=== PATIENT | female | born 1950 | race Asian ===

== ENCOUNTER 2017-05-26 10:46 | Emergency (ER) | payer OTHER ==
[~2017-05-26] VITALS: Ht 157.5 cm; Wt 49.4 kg
[~2017-05-26 10:46] MED LIST: AMLO-114 PO; ASPCH81X PO; ATOR-24 PO; LORA-741 PO; MELATAB2 PO; METO25TA3 PO; NITR0.4S UT; PANT40TA PO
[2017-05-26 10:50] VITALS: TEMP 36.9; Ht 157.5 cm; Wt 49.4 kg
[2017-05-26 11:18] VITALS: O2SAT 94
[2017-05-26 11:25] LABS: BASO % 0.4 %; BASO ABS # 0.02 K/uL (0-0.2); EOS % 0.8 %; EOS ABS # 0.04 K/uL (0-0.5); HEMATOCRIT 39.3 % (37-47); HEMOGLOBIN 13.6 g/dL (12.0-16.0); IG# 0.01 K/uL (0.00-0.02); LYMPH % 33.1 %; LYMPH ABS # 1.64 K/uL (1.2-3.4); MEAN CELL VOLUME 94.5 fL (80-100); MEAN CORPUSCULAR HEMOGLOBIN 32.7 pg (25-34); MEAN CORPUSCULAR HGB CONC 34.6 g/dl (32-36); MEAN PLATELET VOLUME 9.1 fL (7.4-10.4); MONO % 7.3 %; MONO ABS # 0.36 K/uL (0.11-0.59); NEUT % 58.2 %; NEUT ABS # 2.88 K/uL (1.4-6.5); PLATELET COUNT 260 K/uL (130-400); RED CELL DISTRIBUTION WIDTH CV 12.3 % (11.5-14.5); RED CELL DISTRIBUTION WIDTH SD 41.8 fL (36.4-46.3); WHITE BLOOD COUNT 4.95 K/uL (4.8-10.8)
--- NOTE | 2017-05-26 11:32 | DIAGNOSTIC IMAGING REPORT ---
CHEST ONE VIEW PORTABLE HISTORY: Atypical CHEST PAIN COMPARISON: None. FINDINGS: The heart is normal in size. No pleural effusions. No pneumothorax. The left lung is clear. No focal lung consolidations to suggest pneumonia. No evidence for pulmonary edema. Possible 1.4 cm nodule within the right upper lobe. IMPRESSION: 1. No acute process within the chest. 2. Possible 1.4 cm nodule within the right upper lobe. Follow-up chest CT is recommended for further evaluation. Electronically signed by: Tyree Goode M.D. 05/26/2017 11:30 AM Dictated Date/Time: 05/26/2017 11:29 AM
[2017-05-26 11:40] LABS: ALBUMIN 3.8 gm/dl (3.4-5.0); ALT/SGPT 14 U/L (12-78); BLOOD UREA NITROGEN 11 mg/dl (7-18); CALCIUM 8.7 mg/dl (8.5-10.1); CARBON DIOXIDE 28 mmol/L (21-32); CREATININE 0.67 mg/dl (0.60-1.20); GLUCOSE 92 mg/dl (70-99); LIPASE 135 U/L (73-393); POTASSIUM 3.7 mmol/L (3.5-5.1); SODIUM 139 mmol/L (136-145)
--- NOTE | 2017-05-26 11:40 | EMERGENCY ROOM VISIT NOTE ---
History Report prepared by [place]: Funmilayo Gutierrez Under the Supervision of: Dr. Sahil Knight M.D. First contact with patient: 10:55 Chief Complaint: CHEST PAIN Stated Complaint: CHEST PAIN Nursing Triage Summary: Left sided CP for 2-3 weeks intermittent. No cardiac hx. Denies shortness of breath. History of Present Illness The patient is a 66 year old female who presents to the Emergency Room with complaints of intermittent left sided chest pain beginning 2-3 weeks ago. The patient reports her pain is more present when she exerts herself: however, she notes it is present at times when she is resting. She notes a headache, but she denies any nausea, vomiting, or shortness of breath. The patient has a history of stent that was put in 3 years ago. She reports her pain feels similar to when she had her stents put in. Presently, the patient notes some mild chest pain. She follows up with Dr. Stack-Cardiology but has not seen him in years . The patient states she started exercising month for the past 3 months. The patient follows up with Dr. Federico Latham at [facility]. Source of History: patient Onset: 2-3 weeks Position: chest (left) Quality: other (pain) Timing: intermittent Associated Symptoms: + headache, + chest pain, No SOB, No nausea, No vomiting Review of Systems See HPI for pertinent positives and negatives. A total of ten systems were reviewed and were otherwise negative. Past Medical & Surgical Medical Problems: (1) Anxiety (2) Anxiety (3) Benign essential hypertension (4) Benign essential hypertension (5) MIXED HYPERLIPIDEMIA (6) MIXED HYPERLIPIDEMIA (7) Status post placement of bare metal coronary artery stent (8) Status post placement of bare metal coronary artery stent Surgical Problems: (1) H/O dilation and curettage (2) H/O dilation and curettage (3) History of colonoscopy (4) History of colonoscopy (5) History of thyroidectomy, subtotal (6) History of thyroidectomy, subtotal Family History Cancer SISTER (Stomach) GRANDMOTHER Heart disease Hypertension Kidney disease Kidney stones Lung disease Stroke MOTHER Social History Smoking Status: Never Smoker Current/Historical Medications Scheduled Amlodipine (Norvasc), 10 MG PO QAM Aspirin (Aspirin Chewable), 81 MG PO QAM Atorvastatin (Lipitor), 40 MG PO QAM Famotidine (Pepcid), 20 MG PO BID Metoprolol Succ (Toprol Xl) (Toprol-Xl), 25 MG PO QAM Pantoprazole (Protonix), 40 MG PO QAM Scheduled PRN Lorazepam (Ativan), 0.5 MG PO Q6H PRN for Anxiety Melatonin (Melatonin Maximum Strengt), 1 TAB PO HS PRN for Sleep Nitroglycerin (Nitrostat), 0.4 MG UT PRN PRN for Chest Pain Allergies Coded Allergies: No Known Allergies (Unverified , 05/26/17) Physical Exam Vital Signs Date Time Temp Pulse Resp B/P (MAP) Pulse Ox O2 Delivery O2 Flow Rate FiO2 05/26/17 15:32 80 16 136/84 96 05/26/17 13:45 86 18 112/59 98 Room Air 05/26/17 12:48 74 16 121/66 98 Room Air 05/26/17 12:03 76 05/26/17 11:18 94 Room Air 05/26/17 10:50 36.9 72 18 116/83 97 Room Air 05/26/17 10:50 99 Room Air Physical Exam GENERAL: Awake, alert, fatigued-appearing, in no distress HENT: Normocephalic, atraumatic. Oropharynx unremarkable. Dry MM. EYES: Normal conjunctiva. Sclera non-icteric. NECK: Supple. No nuchal rigidity. FROM. No JVD. RESPIRATORY: Clear to auscultation. CARDIAC: Regular rate, normal rhythm. Extremities warm and well perfused. Pulses equal. ABDOMEN: Soft, non-distended. Mild epigastric discomfort but no discrete tenderness to palpation. No rebound or guarding. No masses. RECTAL: Deferred. MUSCULOSKELETAL: Chest examination reveals no tenderness. The back is symmetrical on inspection without obvious abnormality. There is no CVA tenderness to palpation. No joint edema. LOWER EXTREMITIES: Calves are equal size bilaterally and non-tender. No edema. No discoloration. NEURO: Normal sensorium. No sensory or motor deficits noted. SKIN: No rash or jaundice noted. Medical Decision & Procedures ER Provider Diagnostic Interpretation: Radiology results as stated below per my review and radiologist interpretation: CHEST ONE VIEW PORTABLE FINDINGS: The heart is normal in size. No pleural effusions. No pneumothorax. The left lung is clear. No focal lung consolidations to suggest pneumonia. No evidence for pulmonary edema. Possible 1.4 cm nodule within the right upper lobe. IMPRESSION: 1. No acute process within the chest. 2. Possible 1.4 cm nodule within the right upper lobe. Follow-up chest CT is recommended for further evaluation. Electronically signed by: Tyree Goode M.D. Laboratory Results 05/26/17 11:10 Red Blood Count 4.16, Mean Corpuscular Volume 94.5, Mean Corpuscular Hemoglobin 32.7, Mean Corpuscular Hemoglobin Concent 34.6, Mean Platelet Volume 9.1, Neutrophils (%) (Auto) 58.2, Lymphocytes (%) (Auto) 33.1, Monocytes (%) (Auto) 7.3, Eosinophils (%) (Auto) 0.8, Basophils (%) (Auto) 0.4, Neutrophils # (Auto) 2.88, Lymphocytes # (Auto) 1.64, Monocytes # (Auto) 0.36, Eosinophils # (Auto) 0.04, Basophils # (Auto) 0.02 05/26/17 11:10 Test 05/26/17 11:10 05/26/17 13:42 White Blood Count 4.95 K/uL (4.8-10.8) Red Blood Count 4.16 M/uL (4.2-5.4) Hemoglobin 13.6 g/dL (12.0-16.0) Hematocrit 39.3 % (37-47) Mean Corpuscular Volume 94.5 fL (80-100) Mean Corpuscular Hemoglobin 32.7 pg (25-34) Mean Corpuscular Hemoglobin Concent 34.6 g/dl (32-36) Platelet Count 260 K/uL (130-400) Mean Platelet Volume 9.1 fL (7.4-10.4) Neutrophils (%) (Auto) 58.2 % Lymphocytes (%) (Auto) 33.1 % Monocytes (%) (Auto) 7.3 % Eosinophils (%) (Auto) 0.8 % Basophils (%) (Auto) 0.4 % Neutrophils # (Auto) 2.88 K/uL (1.4-6.5) Lymphocytes # (Auto) 1.64 K/uL (1.2-3.4) Monocytes # (Auto) 0.36 K/uL (0.11-0.59) Eosinophils # (Auto) 0.04 K/uL (0-0.5) Basophils # (Auto) 0.02 K/uL (0-0.2) RDW Standard Deviation 41.8 fL (36.4-46.3) RDW Coefficient of Variation 12.3 % (11.5-14.5) Immature Granulocyte % (Auto) 0.2 % Immature Granulocyte # (Auto) 0.01 K/uL (0.00-0.02) Anion Gap 5.0 mmol/L (3-11) Est Creatinine Clear Calc Drug Dose 62.7 ml/min Estimated GFR () 104.7 Estimated GFR (Non- 90.3 BUN/Creatinine Ratio 16.8 (10-20) Calcium Level 8.7 mg/dl (8.5-10.1) Magnesium Level 2.3 mg/dl (1.8-2.4) Total Bilirubin 0.5 mg/dl (0.2-1) Direct Bilirubin 0.1 mg/dl (0-0.2) Aspartate Amino Transf (AST/SGOT) 21 U/L (15-37) Alanine Aminotransferase (ALT/SGPT) 14 U/L (12-78) Alkaline Phosphatase 107 U/L (45-117) Total Protein 7.8 gm/dl (6.4-8.2) Albumin 3.8 gm/dl (3.4-5.0) Lipase 135 U/L (73-393) Troponin I < 0.015 ng/ml (0-0.045) Laboratory results reviewed by me Medications Administered Medications (Trade) Dose Ordered Sig/Orville Route Start Time Stop Time Status Last Admin Dose Admin Famotidine (Pepcid Tab) 20 mg NOW ONCE PO 05/26/17 12:45 05/26/17 12:46 DC 05/26/17 12:50 20 MG ECG Per My Interpretation Indication: chest pain Rate (beats per minute): 73 Rhythm: normal sinus Findings: no acute ischemic change, other (normal axis) ED Course 1111: The patient was evaluated in room C1B. A complete history and physical exam was performed. 1512: I discussed the patient with Dr. Medellin-Ye[facility] Cardiology - He agrees that the patient's work up is reassuring for follow up as an outpatient. He will follow up with the patient for a stress test. 1525: I reevaluated the patient. Discussed results and discharge instructions: She verbalized understanding and agreement. The patient is ready for discharge. Medical Decision I reviewed the patient's past medical history, medications, and the nursing notes as described above. Differential diagnosis: Etiologies such as cardiac ischemia, aortic dissection, pulmonary embolism, pneumonia, pneumothorax, musculoskeletal, infections, pericarditis, myocarditis , esophageal rupture, gastrointestinal, as well as others were entertained. The patient is a 66-year-old woman with a past medical history of CAD status post RCA stent in 2014 presents emergency department with intermittent chest pain over the past couple of weeks per hpi. Of note, the patient denies any progression of exertional pain leading to resting pain. Rather she reports random episodes of pain that occur without any clear pattern. Patient's EKG is unremarkable. Initial troponin is negative and delta 2 hour troponin again negative. Labs otherwise unremarkable. Chest x-ray negative. Patient's symptoms resolved with oral Pepcid, suggesting likely gastric etiology. Case was discussed with Yeison Alexis driver license reviewing officer, who agrees that given the patient's reassuring workup with non-anginal pattern with improvement with Pepcid, it is reasonable to have patient follow-up outpatient for further workup and provocative testing. He will place a note to the clinic to facilitate this f/u. Findings and plan for follow-up reviewed with patient. Patient agreeable and d/c'd per discharge instructions. Medication Reconcilliation Current Medication List: was personally reviewed by me Blood Pressure Screening Patient's blood pressure: Normal blood pressure Consults Time Called: 1506 Consulting Physician: Dr. Engle Cardiology Returned Call: 1512 I discussed the patient with Dr. Engle Cardiology - He agrees that the patient's work up is reassuring for follow up as an outpatient. He will follow up with the patient for a stress test. Impression Primary Impression: Substernal precordial chest pain Additional Impression: Acid reflux Scribe Attestation The scribe's documentation has been prepared under my direction and personally reviewed by me in its entirety. I confirm that the note above accurately reflects all work, treatment, procedures, and medical decision making performed by me. Departure Information Dispostion Home / Self-Care Prescriptions Famotidine (PEPCID) 20 Mg Tab 20 MG PO BID for 14 Days, #28 TAB Prov: Sahil Knight M.D. 05/26/17 Referrals No Doctor, Assigned (PCP) Forms Call Back Authorization, HOME CARE DOCUMENTATION FORM, IMPORTANT VISIT INFORMATION Patient Instructions ED Chest Pain Atypical Unkn Cause, ED GERD, ED Gastritis, My [facility] Additional Instructions Please follow up with your driver license reviewing officer next week for re-evaluation. Because of your symptoms are likely related to reflux or gastritis. Otherwise, your exam, EKG, chest xray, and lab results did not show signs of an emergent condition at this time. Pepcid as directed for acid reduction. Drink plenty of fluids to ensure hydration. Return to the emergency department for worsening symptoms as described in the accompanying instructions. Problem Qualifiers
[2017-05-26 11:46] LABS: ALKALINE PHOSPHATASE 107 U/L (45-117); AST/SGOT 21 U/L (15-37); TOTAL PROTEIN 7.8 gm/dl (6.4-8.2)
[2017-05-26] MEDS ORDERED: FAMOTIDINE 20 MG TAB PO ONE (12:45)
[2017-05-26] MEDS ORDERED: FAMO20TA9 PO (15:21)
[2017-05-26 15:32] VITALS: BP 136/84; PULSE 80; O2SAT 96
== END 2017-05-26 15:34 | disposition home or self-care (01) ==
LOC: UNMERGE 10:49 → MERGE 10:49 → C.EDB 10:49 → C.EDC 15:34
DX: R07.2 Precordial pain (principal); K21.9 Gastro-esophageal reflux disease without esophagitis; R51 Headache; E78.5 Hyperlipidemia, unspecified; I10 Essential (primary) hypertension; Z95.5 Presence of coronary angioplasty implant and graft; Z79.82 Long term (current) use of aspirin; Z80.0 Family history of malignant neoplasm of digestive organs; Z82.49 Family history of ischemic heart disease and other diseases of the circulatory system; Z84.1 Family history of disorders of kidney and ureter; Z83.6 Family history of other diseases of the respiratory system; Z82.0 Family history of epilepsy and other diseases of the nervous system